=== PATIENT | female | born 1970 | race Caucasian/White ===

== ENCOUNTER 2017-05-11 07:18 | Day surgery (SDC) | payer OTHER ==
[~2017-05-11] VITALS: Ht 165.1 cm; Wt 103.4 kg
[~2017-05-11 07:18] MED LIST: ALDACTONE25 MG PO; ENDOCET 5-3251 EACH PO; FLONASE16 G1 BOTH NARES; IBUPROFEN800 MG PO; KEFLEX500 MG PO; LISINOPRIL10 MG PO; LORATADINE10 M2 PO; METFORMIN HCL500 MG PO; MIRALAX255 GM PO; NAPROSYN500 MG PO; PERCOCET 5/31 TABLET PO; PROCTOFOAM-HC10 GM PR; SPIRONOLACTONE25 MG PO; ULTRAM50 MG PO; ZESTRIL,PRINIVI10 MG PO
== END 2017-05-11 08:52 | disposition home or self-care (01) ==
LOC: PAIN 07:18 → SDC 08:00 → PAIN 08:52
DX: M47.816 Spondylosis without myelopathy or radiculopathy, lumbar region (principal); M54.5 Low back pain; G89.29 Other chronic pain; I10 Essential (primary) hypertension; F17.200 Nicotine dependence, unspecified, uncomplicated; Z79.84 Long term (current) use of oral hypoglycemic drugs; Z79.891 Long term (current) use of opiate analgesic; Z88.2 Allergy status to sulfonamides
CPT/HCPCS: J1030; J2250; S0020

== ENCOUNTER 2017-05-18 08:03 | Day surgery (SDC) | payer OTHER ==
[~2017-05-18] VITALS: Ht 165.1 cm; Wt 103.4 kg
== END 2017-05-18 09:45 | disposition home or self-care (01) ==
LOC: PAIN 08:03 → SDC 09:00 → PAIN 09:45
DX: M47.816 Spondylosis without myelopathy or radiculopathy, lumbar region (principal); M43.10 Spondylolisthesis, site unspecified; I10 Essential (primary) hypertension; G89.29 Other chronic pain; E66.9 Obesity, unspecified; Z68.37 Body mass index [BMI] 37.0-37.9, adult; E28.2 Polycystic ovarian syndrome; M16.0 Bilateral primary osteoarthritis of hip; F17.200 Nicotine dependence, unspecified, uncomplicated; Z88.2 Allergy status to sulfonamides; Z79.891 Long term (current) use of opiate analgesic
CPT/HCPCS: J1030; J2250; S0020